=== PATIENT | male | born 1990 | race Caucasian/White ===

== ENCOUNTER 2019-11-18 09:54 | Emergency (ER) | payer SELFPAY ==
[~2019-11-18] VITALS: Ht 182.9 cm; Wt 91.0 kg
[2019-11-18] MEDS ORDERED: KETOROLAC 30MG/ML VIAL IV ONE (10:15)
[2019-11-18 11:04] LABS: EOSINOPHILS % 1.6 % (0.0-5.0); HEMATOCRIT. 44.6 % (42.0-52.0); HEMOGLOBIN. 15.6 g/dL (14.0-18.0); LYMPHOCYTES % 31.2 % (20.0-50.0); MEAN CORPUSCULAR HEMOGLOBIN 31.5 pg (28.0-32.0); MEAN CORPUSCULAR VOLUME 90.2 fL (80.0-94.0); MEAN PLATELET VOLUME 10.3 fl (7.4-10.4); MONOCYTES % 10.2 % (2.0-8.0); PLATELET 177 x1000/uL (130-400); RED BLOOD CELL COUNT 4.95 mill/uL (4.7-6.1); RED CELL DISTRIBUTION WIDTH 13.1 % (11.6-14.6)
[2019-11-18 11:12] LABS: CHLORIDE 105 mEq/L (98-107)
[2019-11-18 13:05] VITALS: BP 119/71
== END 2019-11-18 13:05 | disposition home or self-care (01) ==
LOC: ER 10:34
DX: R07.89 Other chest pain (principal)
CPT/HCPCS: 36415; 71045; 80053; 83880; 84484; 85025; 93005; 96374; 99285; J1885